=== PATIENT | female | born 1990 | race Caucasian/White ===

== ENCOUNTER 2019-01-15 07:50 | Inpatient (IN) | payer BC ==
[2019-01-15 08:26] VITALS: BP 123/79
[2019-01-15] MEDS ORDERED: Dinoprostone* 10 MG VAG.SUPP VAGINAL STA (09:49)
[2019-01-15 13:25] LABS: ABS Basophils 0.1 10^3/ul (0-0.2); ABS Lymphocytes 1.8 10^3/ul (1.0-4.8); ABS Monocytes 0.5 10^3/ul (0-0.8); ABS Neutrophils 10.8 10^3/ul (1.5-7.7); Eosinophil % 0.3 %; Hematocrit 39 % (35-47); Hemoglobin 13.3 g/dL (12.0-16.0); Lymphocyte % 13.5 %; Mean Corpuscular HGB Conc 35 g/dL (31-36); Mean Corpuscular Hemoglobin 33 pg (27-31); Mean Corpuscular Volume 94 fL (80-97); Mean Platelet Volume 9.9 fL (7.4-10.4); Platelet Count 171 10^3/uL (150-450); Red Blood Count 4.11 10^6 /uL (3.70-4.87); Red Cell Distribution Width 13 % (10-15); White Blood Count 13.2 10^3/uL (3.5-10.8)
[2019-01-15 14:08] LABS: Urine Benzodiazepine Screen None Detected (None Detect); Urine Opiates Screen None Detected (None Detect)
[2019-01-15] MEDS ORDERED: Nalbuphine* 10 MG/ML 1 ML VIAL IV ONE (22:23)
[2019-01-15] MEDS ORDERED: Lactated Ringers 1000 ML Bag* 1,000 ML IV ONE (22:23)
[2019-01-15] MEDS ORDERED: Buffered Lidocaine 1% SYRIN* 1 ML/SYRINGE INTRADERM ONE (22:23)
[2019-01-15] MEDS ORDERED: Promethazine INJ(RESTRICTED)* 25 MG/ML 1 ML VIAL IV ONE (22:23)
--- NOTE | 2019-01-15 22:37 | HP ---
General Information - Reason for Visit IOL at term - General Information Maternal Age: 28 Grav: 3 Para: 2 SAB: 0 IEA: 0 Estimated Due Date: 01/15/19 Determined By: Early Ultrasound Maternal Blood Type and Rh: O Positive - Results this Serology/RPR Result: Non-Reactive Rubella Result: Immune HBsAg Result: Negative HIV Result: Negative GBS Culture Result: Negative Past Medical History Delivery History: Hx Uncomplicated Vaginal Delivery - Hx of x 2, last [id number], pelvis proven to 7#5oz Pertinent Past Medical History: See Records Pertinent Past Surgical History: See Records - s/p Carl 2010 Pertinent Family History: Non-Contributory - Antepartal Records Antepartal Records: Reviewed, Uncomplicated Review of Systems Constitutional: Uncomfortable CV Complaint: No Respiratory: Shortness of Breath: No Gastrointestinal: Normal Bowel Movement, Nausea, Vomiting Genitourinary: No Dysuria, No Bleeding, No Leaking Fluid Musculoskeletal: No Complaint, No Epigastric Pain Neurological: No Headache, No Visual Changes Movement: Normal Exam Allergies/Adverse Reactions: Allergies No Known Allergies Allergy (Verified 01/15/19 07:35) Vital Signs 01/15/19 08:25 Temperature 97.2 F Pulse Rate 107 Respiratory 20 Rate Blood Pressure 123/79 (mmHg) O2 Sat by Pulse 100 Oximetry Lab Values - Entire Visit: Laboratory Tests 01/15/19 01/15/19 01/15/19 12:10 13:10 13:10 WBC 13.2 H RBC 4.11 Hgb 13.3 Hct 39 MCV 94 MCH 33 H MCHC 35 RDW 13 Plt Count 171 MPV 9.9 Neut % (Auto) 81.4 Lymph % (Auto) 13.5 [place] % (Auto) 4.1 Eos % (Auto) 0.3 Baso % (Auto) 0.7 Absolute Neuts (auto) 10.8 H Absolute Lymphs (auto) 1.8 Absolute Monos (auto) 0.5 Absolute Eos (auto) 0.0 Absolute Basos (auto) 0.1 Absolute Nucleated RBC 0.0 Nucleated RBC % 0.0 Urine Opiates Screen None detected Ur Barbiturates Screen None detected Ur Phencyclidine Scrn None detected Ur Amphetamines Screen None detected U Benzodiazepines Scrn None detected Urine Cocaine Screen None detected U Cannabinoids Screen None detected Blood Type O Positive Antibody Screen Negative - Measurements Height: 5 ft 6 in Weight: 217 lb Weight in lbs: 217.688228 Body Mass Index (BMI): 35.0 Pre- Weight: 211 lb Weight Gained This : 6 lbs and 0 ozs - Exam Breast: Breast Exam Deferred CVA: No CVA Tenderness Extremities: No Edema Heart: Normal Rhythm/Heart Sounds HEENT: No Significant Findings Lungs: Clear Bilaterally Rectal: Rectal Exam Deferred Reflexes: DTR 2+ Thyroid: No Thyromegaly - Abdominal Exam Abdomen Exam: Non-Tender, Fundal Height Consistent with Dates - Ultrasound/Biophysical Profile Ultrasound Status: Not Done Targeted Exam Findings Cervical Exam: 3cm Effacement: 50% Station: -3 Presenting Part: Vertex Membrane Status: Intact Bleeding/Discharge: None EFM Findings - External Monitor Findings Baseline Heart Rate: 150 External Monitor Findings: Accelerations Present, No Pattern of Variable or Late Decelerations, Variability Moderate, Baseline Stable External Monitor Findings Comment: reactive NST with moderate variability Contractions: Regular, Moderate, 45-90 Seconds Assessment/Plan - Assessment 28 y/o at 40w0d here for IOL at term, admitted to Outpatient for ripening. Cervidil placed at 10:30am, pt was 1cm/thick/-3, soft, anterior. Regular contractions through out the day. Re-examined at ~10pm, now 3cm/50%/-3, continues to contract regularly. Will admit to inpatient now. Nubain and Phenergan PRN now. RH+/Rubella Immune GBS Negative Expectant management at this time, anticipate vaginal delivery, will augment with Pitocin versus AROM if indicated and safe. - Obstetrical Risk Factors Risk Factors Comment: none - Plan Plan: Admit - Anticipate Vaginal Delivery
[2019-01-15] MEDS ORDERED: Lactated Ringers 1000 ML Bag* 1,000 ML IV SCH (23:00)
[2019-01-15] MEDS ORDERED: Oxytocin in LR* 20 UNITS/1,000 ML BAG IVPB SCH (23:00)
--- NOTE | 2019-01-16 08:15 | PN ---
Progress Note - Progress Note Date of Service: 01/16/19 Note: S: Pt sleeping in bed comfortably on entry to room. Easily awakened. Received cervidil at 10:30am on 01/15/2019 with initial good response, regular contractions, pt uncomfortable throughout the day. Re-examined at 10:30pm, cervix changed from 1cm to 3cm, still rogers regularly. Given Nubaine and Phenergan for pain relief and nausea, continued to contract regularly throughout the night while sleeping. This AM on awakening, pt reports that the contractions are not as strong, and they have spaced out to some degree, though still q 2-3 minutes. Denies fever, chills, cp, sob. O: AVSS NAD, AAOx3 Abd: gravid, soft, contractions not as strong to palpation as previously Ext: warm, nttp, no edema Cervix: 3cm/50%/-3 FHT:140bpm, moderate, +accels, no decels A/P: 28 y/o here for elective IOL at term: - AVSS, afebrile, hemodynamically stable - FHT reactive and reassuring, continue to monitor per protocol - IOL: s/p cervidil, contractions have now spaced out. Discussed possibly stopping IOL and discharging home to expectant management, pt would prefer to try Pitocin first. Will give breakfast and try Pitocin. Head to high to break water at this time. - Rh+/Rubella Immune - GBS negative DO [facility]
--- NOTE | 2019-01-16 12:35 | DS ---
DISCHARGE SUMMARY S: Pt is a 28 y/o at 40w1d by 1st trimester USN who presented on 2018 for elective IOL at term. Cervidil was placed for cervical ripening on which patient initially appeared to respond to well with contractions. Cervidil remained in an was ultimately removed approximately 12 hours later. Cervix changed from 1cm to a tight 2-3cm. Cervix remained very thick at 50% and the head very high. Nubain and phenergan were given and patient slept throughout the night. This AM after contractions had spaced out and pt reported not feeling them as strong anymore a trial of Pitocin was administered and Pit was titrated to 12 with no change in contractions for patient who remained comfortable. Pt ultimately requested to stop attempt at IOL and be discharged to continued expectant management. O: BP 128/83 P 79 RR 20 T 98.3 Gen: NAD, AAOx3 CV: RRR Pulm: CTABL Abd: gravid, soft, nd, nttp, irregular contractions, palpate soft Cervix: 2-3cm/50%/-3 FHT: 140bpm, moderate variability, + accels, no decelerations [place]: q 3-4 minutes, abdomen palpates soft A/P: 28 y/o at 40w1d with Hx of x 2; here for attempted elective IOL, has not entered into labor after Cervidil or Pitocin. Declines attempt at high rupture of membranes. Requests cessation of IOL at this time and expectant management in the outpatient setting. This is reasonable given patient's gestational age, favorable obstetric history and no complications with current gestation. Fetus has been reactive with moderate variability throughout her stay , there have been no signs of distress. Pt is GBS negative. Of note, pt did appear to have mild yeast infection, will treat in outpatient setting at this time. Discharge Disposition: To Home Prognosis: Excellent Follow up in office this week for MOUNA Labor, ROM, VB, DFM precautions carefully reviewed. DO [facility] Elliott
== END 2019-01-16 12:30 | disposition home or self-care (01) | DRG 951 ==
LOC: MCHOBOUT 07:50 → MCHOB 12:56
PROVIDERS: ADMIT Obstetrics & Gynecology; ATTEND Obstetrics & Gynecology
PROC: 3E0P7VZ Introduction of Hormone into Female Reproductive, Via Natural or Artificial Opening (ICD-10-PCS; principal; 2019-01-15)
PROC: 3E033VJ Introduction of Other Hormone into Peripheral Vein, Percutaneous Approach (ICD-10-PCS; 2019-01-15)
DX: O48.0 Post-term pregnancy (principal); O61.0 Failed medical induction of labor; Z3A.40 40 weeks gestation of pregnancy
CPT/HCPCS: 36415; 80307; 85025; 86850; 86900; 86901; J2300; J2550

== ENCOUNTER 2019-01-19 06:58 | Inpatient (IN) | payer BC ==
[2019-01-19] MEDS ORDERED: Lactated Ringers 1000 ML Bag* 1,000 ML IV ONE (07:23)
[2019-01-19] MEDS ORDERED: Buffered Lidocaine 1% SYRIN* 1 ML/SYRINGE INTRADERM ONE (07:23)
[2019-01-19] MEDS: Oxytocin in LR* 20 UNITS/1,000 ML BAG IVPB SCH ×2 (07:59→17:53)
[2019-01-19 08:00] LABS: ABS Monocytes 0.7 10^3/ul (0-0.8); Eosinophil % 0.4 %; Hematocrit 37 % (35-47); Hemoglobin 13.2 g/dL (12.0-16.0); Lymphocyte % 18.8 %; Mean Corpuscular HGB Conc 36 g/dL (31-36); Mean Corpuscular Hemoglobin 33 pg (27-31); Mean Corpuscular Volume 93 fL (80-97); Mean Platelet Volume 9.7 fL (7.4-10.4); Platelet Count 163 10^3/uL (150-450); Red Blood Count 3.99 10^6 /uL (3.70-4.87); Red Cell Distribution Width 13 % (10-15); White Blood Count 10.9 10^3/uL (3.5-10.8)
[2019-01-19] MEDS ORDERED: Lactated Ringers 1000 ML Bag* 1,000 ML IV SCH ×2 (08:00→15:00)
[2019-01-19 08:16] LABS: Urine Benzodiazepine Screen None Detected (None Detect); Urine Opiates Screen None Detected (None Detect)
--- NOTE | 2019-01-19 11:18 | HP ---
General Information - Reason for Visit IOL at term - General Information Maternal Age: 28 Grav: 3 Para: 2 SAB: 0 IEA: 0 Estimated Due Date: 01/15/19 Determined By: Early Ultrasound Maternal Blood Type and Rh: O Positive - Results this Serology/RPR Result: Non-Reactive Rubella Result: Immune HBsAg Result: Negative HIV Result: Negative GBS Culture Result: Negative Past Medical History Delivery History: Hx Uncomplicated Vaginal Delivery - Hx of uncomplicated vaginal delivery x 2 Pertinent Past Medical History: See Records Pertinent Past Surgical History: See Records Pertinent Family History: Non-Contributory - Antepartal Records Antepartal Records: Reviewed, Uncomplicated Review of Systems Constitutional: Comfortable CV Complaint: No Respiratory: Shortness of Breath: No Gastrointestinal: No Nausea/Vomiting, Normal Bowel Movement Genitourinary: No Dysuria, No Bleeding, No Leaking Fluid Musculoskeletal: No Complaint, No Epigastric Pain Neurological: No Headache, No Visual Changes Movement: Normal Exam Allergies/Adverse Reactions: Allergies No Known Allergies Allergy (Verified 01/15/19 07:35) T 97.3 Pulse 93 RR 20 BP 126/76 O2 saturation 99% Lab Values - Entire Visit: Laboratory Tests 01/19/19 01/19/19 01/19/19 07:40 07:40 07:40 WBC 10.9 H RBC 3.99 Hgb 13.2 Hct 37 MCV 93 MCH 33 H MCHC 36 RDW 13 Plt Count 163 MPV 9.7 Neut % (Auto) 74.1 Lymph % (Auto) 18.8 [place] % (Auto) 6.4 Eos % (Auto) 0.4 Baso % (Auto) 0.3 Absolute Neuts (auto) 8.0 H Absolute Lymphs (auto) 2.0 Absolute Monos (auto) 0.7 Absolute Eos (auto) 0.0 Absolute Basos (auto) 0.0 Absolute Nucleated RBC 0.0 Nucleated RBC % 0.0 Urine Opiates Screen None detected Ur Barbiturates Screen None detected Ur Phencyclidine Scrn None detected Ur Amphetamines Screen None detected U Benzodiazepines Scrn None detected Urine Cocaine Screen None detected U Cannabinoids Screen None detected Blood Type O Positive Antibody Screen Negative - Measurements Height: 5 ft 6 in Weight: 218 lb Weight in lbs: 218.068252 Body Mass Index (BMI): 35.2 Pre- Weight: 211 lb Weight Gained This : 7 lbs and 0 ozs - Exam Breast: Breast Exam Deferred CVA: No CVA Tenderness Extremities: No Edema Heart: Normal Rhythm/Heart Sounds HEENT: No Significant Findings Lungs: Clear Bilaterally Rectal: Rectal Exam Deferred Reflexes: DTR 2+ Thyroid: No Thyromegaly - Abdominal Exam Abdomen Exam: Non-Tender, Fundal Height Consistent with Dates - Ultrasound/Biophysical Profile Ultrasound Findings: Vertex Targeted Exam Findings Cervical Exam: 4cm Effacement: <50% Station: -2 Presenting Part: Vertex Membrane Status: Intact Bleeding/Discharge: None EFM Findings - External Monitor Findings Baseline Heart Rate: 140 External Monitor Findings: Accelerations Present, No Pattern of Variable or Late Decelerations, Variability Moderate, Baseline Stable External Monitor Findings Comment: reactive with moderate variability Contractions: Regular, < 45 Seconds Assessment/Plan - Assessment 28 y/o at 40w4d here for IOL at term. RH+/Rubella Immune GBS negative - Plan Plan: Induction - IOL with Pitocin, AROM if safe once with regular contractions
--- NOTE | 2019-01-19 11:24 | PN ---
Progress Note - Progress Note Date of Service: 01/19/19 Note: AROM'd at 11:20am with clear amniotic fluid. FHT is reactive with moderate variabilty, no decels, basline of 140bpm. Contractions q 2-4 minutes. Continue Pit at 10. Dru Shaq, DO ARVIZU
[2019-01-19] MEDS ORDERED: OBEPIDURAL* 0 ML EPIDURAL ONE (13:49)
[2019-01-19] MEDS ORDERED: Acetaminophen TAB* 325 MG PO PRN (14:18)
[2019-01-19] MEDS ORDERED: Glycerin ADULT SUPP PR PRN (14:18)
[2019-01-19] MEDS ORDERED: Witch Hazel PAD* JAR TOPICAL PRN (14:18)
[2019-01-19] MEDS ORDERED: Dibucaine 1% 28.35 GM TUBE PR PRN (14:18)
[2019-01-19] MEDS ORDERED: Misoprostol TAB* 200 MCG VAGINAL ONE (14:20)
--- NOTE | 2019-01-19 14:26 | PROCNOTE ---
[facility] OB: Delivery Note - Delivery A Date of : 01/19/19 Time of : 13:55 [place] Sex: Male Weight at : 8 lb 13 oz Score 1 Minute: 9 Score 5 Minutes: 9 Gestational Age in Weeks and Days at Delivery: 40 Weeks and 4 Days Delivery Method: Spontaneous Vaginal Labor: Induced Did Patient attempt ?: N/A, No Previous Amniotic Fluid: Clear Estimated Blood Loss: 250 Anesthesia/Analgesia: Nitrous-Labor - Nursery Level of Nursery: Regular/Bedside - Perineum Perineal Injury: None/Intact Perineal Repair: None - Events Delivery Events of Note: Pitocin During Labor - Additional Delivery Notes Additional Delivery Notes: 28 y/o presented for IOL at 40w4d. Pitocin --> AROM --> after AROM went from 5cm/50% --> delivered within 3 hours . Pushed x 2. Baby 8#13 oz, delivered over intact perineum. Nuchal x 1, body cord x 1. PRASAD. Apgars 9 and 9. IV Pitocin and 800mcg [place] given secondary to rapid delivery. Mother and baby doing well at time of this note. DO [facility] Elliott
[2019-01-19] MEDS: Ibuprofen TAB* 600 MG PO PRN ×2 (14:57→22:01)
[2019-01-19] MEDS ORDERED: Simethicone TAB* 80 MG TAB.CHEW PO SCH (17:30)
[2019-01-19] MEDS ORDERED: fentaNYL* 50 MCG/ML 2 ML VIAL (100 MCG VIAL) ONE (18:29)
[2019-01-19] MEDS ORDERED: Methylergonovine INJ* 0.2 MG/ML 1ML AMP ONE (18:35)
[2019-01-19] MEDS ORDERED: Methylergonovine INJ* 0.2 MG/ML 1ML AMP IM ONE (18:47)
[2019-01-19] MEDS ORDERED: ceFAZolin VIAL(*) 2 GM in NS 0.9% 100 ML* 100 ML IVPB ONE (18:47)
[2019-01-19] MEDS ORDERED: ceFAZolin 2 GM PREMIX in ORs 2 GM/50 ML BAG IVPB ONE (18:52)
[2019-01-19] MEDS ORDERED: fentaNYL* 50 MCG/ML 2 ML VIAL (100 MCG VIAL) IV SLOW PU ONE (19:02)
--- NOTE | 2019-01-19 19:06 | PN ---
Progress Note - Progress Note Date of Service: 01/19/19 Note: Called by nursing to assess pt bleeding. Pt soaked pad x 3 since delivery. IV Pitocin re-started. Pt examined and ~500cc blood clot manually evacuated from uterus. 50 Mcg Fentanyl given prior to exam. 0.2mg methergine IM given, will follow with PO methergine 0.2 q 4 hours x 3 doses. Ancef 2 G x 1. Pt bleeding stable after exam and clot evacuation. Fundus firm below the umbilicus. AVSS, afebrile. Nursing to continue to monitor fundal height and bleeding overnight. Dru New, OBGYN
[2019-01-19] MEDS ORDERED: Docusate CAP* 100 MG PO SCH (21:00)
[2019-01-19] MEDS: Methylergonovine TAB* 0.2 MG PO SCH (22:03)
[2019-01-20] MEDS: Methylergonovine TAB* 0.2 MG PO SCH ×2 (01:59→06:04)
[2019-01-20 06:54] LABS: ABS Monocytes 0.8 10^3/ul (0-0.8); ABS Neutrophils 9.3 10^3/ul (1.5-7.7); Eosinophil % 0.3 %; Hematocrit 32 % (35-47); Hemoglobin 11.5 g/dL (12.0-16.0); Lymphocyte % 16.7 %; Mean Corpuscular HGB Conc 36 g/dL (31-36); Mean Corpuscular Hemoglobin 33 pg (27-31); Mean Corpuscular Volume 93 fL (80-97); Platelet Count 143 10^3/uL (150-450); Red Blood Count 3.45 10^6 /uL (3.70-4.87); Red Cell Distribution Width 13 % (10-15); White Blood Count 12.2 10^3/uL (3.5-10.8)
[2019-01-20] MEDS ORDERED: Ferrous Gluconate TAB* 324 MG TAB PO SCH (09:00)
[2019-01-20 09:04] VITALS: BP 117/69
== END 2019-01-20 14:45 | disposition home or self-care (01) | DRG 560 ==
LOC: MCHOBOUT 06:58 → MCHOB 07:25
PROVIDERS: ADMIT Obstetrics & Gynecology; ATTEND Obstetrics & Gynecology
PROC: 10E0XZZ Delivery of Products of Conception, External Approach (ICD-10-PCS; principal; 2019-01-19)
PROC: 10907ZC Drainage of Amniotic Fluid, Therapeutic from Products of Conception, Via Natural or Artificial Opening (ICD-10-PCS; 2019-01-19)
PROC: 4A1HXCZ Monitoring of Products of Conception, Cardiac Rate, External Approach (ICD-10-PCS; 2019-01-19)
PROC: 3E033VJ Introduction of Other Hormone into Peripheral Vein, Percutaneous Approach (ICD-10-PCS; 2019-01-19)
PROC: 0UC97ZZ Extirpation of Matter from Uterus, Via Natural or Artificial Opening (ICD-10-PCS; 2019-01-19)
DX: O48.0 Post-term pregnancy (principal); O72.1 Other immediate postpartum hemorrhage; Z37.0 Single live birth; Z3A.40 40 weeks gestation of pregnancy; O69.81X0 Labor and delivery complicated by cord around neck, without compression, not applicable or unspecified; O69.82X0 Labor and delivery complicated by other cord entanglement, without compression, not applicable or unspecified; O77.0 Labor and delivery complicated by meconium in amniotic fluid; O62.3 Precipitate labor
CPT/HCPCS: 36415; 80307; 85025; 86850; 86900; 86901; A9270-GY; J0690; J2210; J3010